=== PATIENT | female | born 1975 | race Caucasian/White ===

== ENCOUNTER 2018-01-26 09:40 | Emergency (ER) | payer BC, OTHER ==
[~2018-01-26] VITALS: Ht 170.2 cm; Wt 81.5 kg
[~2018-01-26 09:40] MED LIST: HYDR5TAB27 PO; OXYC-57 PO
[2018-01-26 09:47] VITALS: TEMP 37.2; Ht 170.2 cm; Wt 81.5 kg
[2018-01-26] MEDS ORDERED: ONDANSETRON INJ 2 MG/ML 2 ML VIAL IV STA (10:36)
[2018-01-26] MEDS ORDERED: SODIUM CHLORIDE 0.9% 1000ML 1,000 ML IV STA (10:36)
[2018-01-26] MEDS ORDERED: KETOROLAC TROMETHAMINE 30 MG/ML VIAL IV STA (10:36)
[2018-01-26] MEDS ORDERED: GEMF600T3 PO (10:44)
[2018-01-26 11:03] LABS: BASO % 0.3 %; BASO ABS # 0.02 K/uL (0-0.2); EOS % 0.4 %; EOS ABS # 0.03 K/uL (0-0.5); HEMATOCRIT 41.3 % (37-47); HEMOGLOBIN 14.1 g/dL (12.0-16.0); IG# 0.01 K/uL (0.00-0.02); LYMPH % 17.2 %; LYMPH ABS # 1.31 K/uL (1.2-3.4); MEAN CELL VOLUME 90.2 fL (80-100); MEAN CORPUSCULAR HEMOGLOBIN 30.8 pg (25-34); MEAN CORPUSCULAR HGB CONC 34.1 g/dl (32-36); MEAN PLATELET VOLUME 9.5 fL (7.4-10.4); MONO % 3.7 %; MONO ABS # 0.28 K/uL (0.11-0.59); NEUT % 78.3 %; NEUT ABS # 5.97 K/uL (1.4-6.5); PLATELET COUNT 268 K/uL (130-400); RED CELL DISTRIBUTION WIDTH CV 12.6 % (11.5-14.5); RED CELL DISTRIBUTION WIDTH SD 41.4 fL (36.4-46.3); WHITE BLOOD COUNT 7.62 K/uL (4.8-10.8)
[2018-01-26 11:35] LABS: ALBUMIN 4.1 gm/dl (3.4-5.0); CALCIUM 9.5 mg/dl (8.5-10.1); CREATININE 0.98 mg/dl (0.60-1.20)
[2018-01-26 11:41] LABS: TOTAL PROTEIN 7.8 gm/dl (6.4-8.2)
--- NOTE | 2018-01-26 11:48 | DIAGNOSTIC IMAGING REPORT ---
PELVIC COMPLETE NON OB CLINICAL HISTORY: 42 years-old Female presenting with LLQ abd pain, LMP 2 days ago, abnormal bleeding, pelvic pain, endometrial ablation 5 years ago. TECHNIQUE: Real-time grayscale and color and spectral Doppler ultrasound imaging of the pelvis was performed first using a transabdominal probe and subsequently transvaginal for better characterization. COMPARISON: None. FINDINGS: Uterus: Normal. Anteverted. The uterus measures 8.1 x 4.8 x 4.1 cm. Endometrial stripe measures 7 mm in thickness. Endometrium normal-appearing. Cervix contain Nabothian cysts. Right adnexa: Right ovary normal. Right ovary measures 2.6 x 2.6 x 1.5 cm. Normal color Doppler flow and arterial and venous waveforms within the ovarian parenchyma. Left adnexa: Left ovary contains a dominant follicle. Left ovary measures 3.9 x 2.5 x 2.2 cm. Normal color Doppler flow and arterial and venous waveforms within the ovarian parenchyma. Other: No free fluid. IMPRESSION: No significant abnormality identified within the pelvis. Electronically signed by: Ronnie Soria M.D. 01/26/2018 11:46 AM Dictated Date/Time: 01/26/2018 11:41 AM
[2018-01-26 13:07] VITALS: BP 119/83; PULSE 85; O2SAT 98
--- NOTE | 2018-01-26 16:22 | EMERGENCY ROOM VISIT NOTE ---
History Report prepared by Aisha: Abhi Ríos Under the Supervision of: Dr. Phil Chau D.O. First contact with patient: 10:27 Chief Complaint: PELVIC PAIN Stated Complaint: LEFT PELVIC PAIN History of Present Illness The patient is a 42 year old female who presents to the Emergency Room with complaints of worsening pain in the left side of her pelvis that began two days ago. The patient states that her pain does radiate across to the right pelvis and into the left back. She discussed her symptoms with her [employer] [employer] office and has an appointment for next Tuesday, however they referred her to the Emergency Department for an ultra sound. The patient had a complete ablation of her uterus 5 years ago which stopped her menstrual cycle. A few years after the procedure her period came back with light spotting and mild cramping. Over the past year, these symptoms have gotten progressively worse, and worsened acutely today. Two days ago her period became "very heavy" for the first time, and is not on any normal menstrual cycle. There is no other vaginal discharge. The patient did vomit this morning when she arrived to work. Source of History: patient Onset: 2 days ago Position: other (Left pelvic pain) Quality: cramping Timing: worsening Associated Symptoms: + vomiting Note: Heavy flow menstrual cycle two days ago. Review of Systems See HPI for pertinent positives & negatives. A total of 10 systems reviewed and were otherwise negative. Past Medical & Surgical Hx of Ablation and Lithotripsy. Family History Cancer Diabetes mellitus FH: heart disease FH: lung disease Heart disease Hypertension Social History Smoking Status: Never Smoker Drug Use: none Marital Status: Housing Status: lives with family Occupation Status: employed Current/Historical Medications Scheduled Gemfibrozil (Lopid), 600 MG PO BID Allergies Uncoded Allergies: SOY BEANS (Allergy, HIVES ON FACE/ COUGH, 09/27/13) Physical Exam Vital Signs Date Time Temp Pulse Resp B/P (MAP) Pulse Ox O2 Delivery O2 Flow Rate FiO2 01/26/18 13:07 85 21 119/83 98 01/26/18 11:56 72 20 136/94 99 Room Air 01/26/18 09:47 37.2 81 18 142/93 97 Room Air Physical Exam GENERAL: Sitting up in bed, alert, well appearing, laying on her right side and holding her left abdomen, well nourished, mild distress, non-toxic EYE EXAM: normal conjunctiva. OROPHARYNX: no exudate, no erythema, lips, buccal mucosa, and tongue normal and mucous membranes are moist NECK: supple, no nuchal rigidity, no adenopathy, non-tender LUNGS: Clear to auscultation. Normal chest wall mechanics HEART: no murmurs, S1 normal and S2 normal ABDOMEN: abdomen soft, and tender to palpation just left of the pubic synthesis , normo-active bowel sounds, no masses, no rebound or guarding. BACK: Back is symmetrical on inspection and there is no deformity, no midline tenderness, no CVA tenderness. SKIN: no rashes and no bruising UPPER EXTREMITIES: upper extremities are grossly normal. LOWER EXTREMITIES: No pitting edema. NEURO EXAM: Normal sensorium, cranial nerves II-XII grossly intact, normal speech, no gross weakness of arms, no gross weakness of legs. Medical Decision & Procedures ER Provider Diagnostic Interpretation: Radiology results as stated below per my review and the radiologist's interpretation: PELVIC COMPLETE NON OB CLINICAL HISTORY: 42 years-old Female presenting with LLQ abd pain, LMP 2 days ago, abnormal bleeding, pelvic pain, endometrial ablation 5 years ago. TECHNIQUE: Real-time grayscale and color and spectral Doppler ultrasound imaging of the pelvis was performed first using a transabdominal probe and subsequently transvaginal for better characterization. COMPARISON: None. FINDINGS: Uterus: Normal. Anteverted. The uterus measures 8.1 x 4.8 x 4.1 cm. Endometrial stripe measures 7 mm in thickness. Endometrium normal-appearing. Cervix contain Nabothian cysts. Right adnexa: Right ovary normal. Right ovary measures 2.6 x 2.6 x 1.5 cm. Normal color Doppler flow and arterial and venous waveforms within the ovarian parenchyma. Left adnexa: Left ovary contains a dominant follicle. Left ovary measures 3.9 x 2.5 x 2.2 cm. Normal color Doppler flow and arterial and venous waveforms within the ovarian parenchyma. Other: No free fluid. IMPRESSION: No significant abnormality identified within the pelvis. Electronically signed by: Ronnie Soria M.D. 01/26/2018 11:46 AM Dictated Date/Time: 01/26/2018 11:41 AM Laboratory Results 01/26/18 10:45 Red Blood Count 4.58, Mean Corpuscular Volume 90.2, Mean Corpuscular Hemoglobin 30.8, Mean Corpuscular Hemoglobin Concent 34.1, Mean Platelet Volume 9.5, Neutrophils (%) (Auto) 78.3, Lymphocytes (%) (Auto) 17.2, Monocytes (%) (Auto) 3.7, Eosinophils (%) (Auto) 0.4, Basophils (%) (Auto) 0.3, Neutrophils # (Auto) 5.97, Lymphocytes # (Auto) 1.31, Monocytes # (Auto) 0.28, Eosinophils # (Auto) 0.03, Basophils # (Auto) 0.02 01/26/18 10:45 Test 01/26/18 10:45 01/26/18 11:55 White Blood Count 7.62 K/uL (4.8-10.8) Red Blood Count 4.58 M/uL (4.2-5.4) Hemoglobin 14.1 g/dL (12.0-16.0) Hematocrit 41.3 % (37-47) Mean Corpuscular Volume 90.2 fL (80-100) Mean Corpuscular Hemoglobin 30.8 pg (25-34) Mean Corpuscular Hemoglobin Concent 34.1 g/dl (32-36) Platelet Count 268 K/uL (130-400) Mean Platelet Volume 9.5 fL (7.4-10.4) Neutrophils (%) (Auto) 78.3 % Lymphocytes (%) (Auto) 17.2 % Monocytes (%) (Auto) 3.7 % Eosinophils (%) (Auto) 0.4 % Basophils (%) (Auto) 0.3 % Neutrophils # (Auto) 5.97 K/uL (1.4-6.5) Lymphocytes # (Auto) 1.31 K/uL (1.2-3.4) Monocytes # (Auto) 0.28 K/uL (0.11-0.59) Eosinophils # (Auto) 0.03 K/uL (0-0.5) Basophils # (Auto) 0.02 K/uL (0-0.2) RDW Standard Deviation 41.4 fL (36.4-46.3) RDW Coefficient of Variation 12.6 % (11.5-14.5) Immature Granulocyte % (Auto) 0.1 % Immature Granulocyte # (Auto) 0.01 K/uL (0.00-0.02) Anion Gap 8.0 mmol/L (3-11) Est Creatinine Clear Calc Drug Dose 82.1 ml/min Estimated GFR () 82.5 Estimated GFR (Non- 71.1 BUN/Creatinine Ratio 12.4 (10-20) Calcium Level 9.5 mg/dl (8.5-10.1) Total Bilirubin 0.5 mg/dl (0.2-1) Direct Bilirubin mg/dl (0-0.2) Aspartate Amino Transf (AST/SGOT) U/L (15-37) Alanine Aminotransferase (ALT/SGPT) 19 U/L (12-78) Alkaline Phosphatase 76 U/L (45-117) Total Protein 7.8 gm/dl (6.4-8.2) Albumin 4.1 gm/dl (3.4-5.0) Lipase 124 U/L (73-393) Urine Color YELLOW Urine Appearance CLOUDY (CLEAR) Urine pH 6.0 (4.5-7.5) Urine Specific [place] 1.008 (1.000-1.030) Urine Protein NEG (NEG) Urine Glucose (UA) NEG (NEG) Urine Ketones NEG (NEG) Urine Occult Blood 3+ (NEG) Urine Nitrite NEG (NEG) Urine Bilirubin NEG (NEG) Urine Urobilinogen NEG (NEG) Urine Leukocyte Esterase SMALL (NEG) Urine WBC (Auto) 1-5 /hpf (0-5) Urine RBC (Auto) >30 /hpf (0-4) Urine Hyaline Casts (Auto) 1-5 /lpf (0-5) Urine Epithelial Cells (Auto) 20-30 /lpf (0-5) Urine Bacteria (Auto) NEG (NEG) Urine Test NEG (NEG) Laboratory results per my review. Medications Administered Medications (Trade) Dose Ordered Sig/Tanya Route Start Time Stop Time Status Last Admin Dose Admin Sodium Chloride 1,000 ml @ 999 mls/hr Q1H1M STAT IV 01/26/18 10:36 01/26/18 11:36 DC 01/26/18 10:55 999 MLS/HR Ketorolac Tromethamine (Toradol Inj) 30 mg NOW STAT IV 01/26/18 10:36 01/26/18 10:38 DC 01/26/18 10:57 30 MG Ondansetron HCl (Zofran Inj) 4 mg NOW STAT IV 01/26/18 10:36 01/26/18 10:38 DC 01/26/18 10:55 4 MG ED Course ED COURSE: Vital signs were reviewed and showed hypertensive vitals. The patients medical record was reviewed The above diagnostic studies were performed and reviewed. ED treatments and interventions as stated above. 1031: The patient was evaluated in room B5. A complete history and physical examination was performed. 1036: Ordered Zofran 4 mg IV, Toradol 30 mg IV, Sodium Chloride 1000 mL @ 999 mL /hr IV. 1231: Upon reevaluation, the patient is B5.I discussed my findings with the patient and she understands and agrees with the treatment plan. Based on the patients age, coexisting illnesses, exam and lab findings the decision to treat as an outpatient was made. The patient remained stable while under my care. The patient appeared well at the time of discharge. Medical Decision Differential diagnoses includes but is not limited to appendicitis, diverticulitis, small bowel obstruction, malignancy, hernia, urinary tract infection, torsion, and ectopic , perforation, trauma, infectious. Patient is a 40-year-old female who presents to ER for left suprapubic pain. Pain is been present for the past 2 days associated with her menstrual period. Previous ablation and she had been doing well now the bleeding has been getting worse and recently CBC along with BMP, LFTs and bilirubin and lipase was unremarkable. Potassium did not result and I was informed of this just at the completion of her ultrasound. UA was contaminated. was negative. Ultrasound was negative. Patient was given IV Toradol did feel significantly better. She is updated at bedside. I do not believe that there is any acute intra-abdominal pathology and she has no peritonitis or rebound/guarding. I do favor this likely pelvic in origin or related to her dysfunctional uterine bleeding. Patient was updated at bedside and discharged follow-up with gynecology on Tuesday. Discussed with Pt concerning signs and symptoms to watch out for. Pt was instructed to follow up with their PCP and discussed with the patient their option to return to the ED at anytime for persistent or worsening symptoms. The appropriate anticipatory guidance and out-patient management, including indications for return to the emergency department, were explained at length to the patient and understood. Medication Reconcilliation Current Medication List: was personally reviewed by me Blood Pressure Screening Patient's blood pressure: Elevated blood pressure Blood pressure disposition: Elevated BP felt to be situational Impression Primary Impression: Abdominal pain Scribe Attestation The scribe's documentation has been prepared under my direction and personally reviewed by me in its entirety. I confirm that the note above accurately reflects all work, treatment, procedures, and medical decision making performed by me. Departure Information Dispostion Home / Self-Care Referrals No Doctor, Assigned (PCP) Forms HOME CARE DOCUMENTATION FORM, IMPORTANT VISIT INFORMATION, WORK / SCHOOL INSTRUCTIONS Patient Instructions My [facility] Additional Instructions Please follow up with your primary care doctor with in the next 24 hours. Any worsening of your symptoms, please return to the ED immediately. This includes any fevers greater than 100.4, worsening pain, chest pain, shortness breath, persistent nausea, vomiting, unable to eat or drink, or any other concerning signs or symptoms from your standpoint. Please take Tylenol and Motrin as needed for pain. Any worsening or changing symptoms again please return to ER immediately. Problem Qualifiers Primary Impression: Abdominal pain Abdominal location: unspecified location Qualified Codes: R10.9 - Unspecified abdominal pain
== END 2018-01-26 13:08 | disposition home or self-care (01) ==
LOC: C.EDB 09:42
DX: R10.2 Pelvic and perineal pain (principal); N93.8 Other specified abnormal uterine and vaginal bleeding; Z98.890 Other specified postprocedural states; Z91.018 Allergy to other foods